=== PATIENT | male | born 1965 | race Caucasian/White ===

== ENCOUNTER 2018-12-21 06:26 | Day surgery (SDC) | payer BC, OTHER ==
[~2018-12-21 06:26] MED LIST: Midazolam 1 MG/ML 2 ML SDV ONE; fentaNYL 100 MCG/2 ML SDV ONE
[2018-12-21] MEDS ORDERED: fentaNYL 100 MCG/2 ML SDV IV ONE ×3 (06:27→07:11)
[2018-12-21] MEDS ORDERED: Midazolam 1 MG/ML 2 ML SDV IV ONE ×3 (06:27→07:13)
[2018-12-21] MEDS ORDERED: Sodium Chloride 0.9% 10 ML Syringe FLUSH PRN (07:00)
[2018-12-21] MEDS ORDERED: Dextrose 5%-0.45% NaCl 1,000 ML IV SCH (07:00)
[2018-12-21 10:43] VITALS: BP 120/84; PULSE 87
--- NOTE | 2018-12-21 11:37 | OR ---
DATE: 12/21/2018 PROCEDURE PERFORMED: Esophagogastroduodenoscopy and multiple pinch biopsies. INSTRUMENT USED: [id number]-HQ190 Olympus video panendoscope. PREMEDICATIONS: No oral or topical anesthesia used. Fentanyl 100 mcg intravenous, Versed 2 mg intravenous. The procedure was done under pulse oximetry, BP recording, and monitoring and evaluation advisor. INDICATION: The patient with persistent chest pain, unexplained and not responsive to medical measures, on high-dose PPI. INDICATIONS: The esophagogastroduodenoscopy is performed for detection of any active erosive lesions, malignancy also under consideration, H. pylori status to be determined, endoscopic hemostasis therapy if needed. DESCRIPTION OF PROCEDURE: The scope was passed with ease. Adequate visualization of the esophagus was made from proximal to distal areas. No upper esophageal lesions identified. No distal esophageal stricture. No uphill or downhill esophageal varices. No Shobha-Damon tear. No evidence of erosive esophagitis by Sherrill criteria. No esophageal polyp or tumor mass identified. Z-line was seen at around 40 cm distal to the oral verge, configuration consistent with grade 1 by ZAP classification. No esophageal polyp or tumor mass identified. No proximal gastric varices noted. Gastric fundus examination by retroflexion showed no polypoid lesions. No gastric ulcer, malignant mass, or vascular ectasia identified. Duodenal bulb showed no ulcer. Visualized second part of the duodenum was unremarkable. Multiple pinch biopsies were taken from the gastric antrum and proximal body and sent for PyloriTek test for H. pylori, and if negative in an hour, the tissue is to be sent for histopathology. No bleeding was noted from any of the visualized areas at the completion of examination. Photographs were taken of the duodenal bulb, gastric antrum, fundus, and distal esophagus. IMPRESSION: Normal study. The patient tolerated the procedure well. [facility] /[id number]
== END 2018-12-21 09:27 | disposition home or self-care (01) ==
LOC: DL.ENDO 06:26
PROVIDERS: ATTEND Internal Medicine Gastroenterology
DX: R07.9 Chest pain, unspecified (principal); K21.9 Gastro-esophageal reflux disease without esophagitis; E78.5 Hyperlipidemia, unspecified; E11.9 Type 2 diabetes mellitus without complications; I10 Essential (primary) hypertension; E66.09 Other obesity due to excess calories; Z68.34 Body mass index [BMI] 34.0-34.9, adult; Z79.899 Other long term (current) drug therapy
CPT/HCPCS: 43239; 87077; J2250; J3010; J7042

== ENCOUNTER 2023-03-13 05:59 | Day surgery (SDC) | payer BC, OTHER ==
[2023-03-13] MEDS ORDERED: Dextrose 5%-0.45% NaCl 1,000 ML IV SCH (06:00)
[2023-03-13] MEDS ORDERED: Midazolam 1 MG/ML 2 ML SDV IV ONE ×7 (06:00→07:03)
[2023-03-13] MEDS ORDERED: fentaNYL 100 MCG/2 ML SDV IV ONE ×3 (06:00→06:54)
[2023-03-13] MEDS ORDERED: Midazolam 1 MG/ML 2 ML SDV ONE (06:08)
[2023-03-13] MEDS ORDERED: fentaNYL 100 MCG/2 ML SDV ONE (06:08)
[2023-03-13 15:07] VITALS: BP 130/88; PULSE 65
== END 2023-03-13 08:30 | disposition home or self-care (01) ==
LOC: DL.ENDO 05:59
PROVIDERS: ATTEND Internal Medicine Gastroenterology
DX: Z12.11 Encounter for screening for malignant neoplasm of colon (principal); D12.4 Benign neoplasm of descending colon; K62.1 Rectal polyp; K57.30 Diverticulosis of large intestine without perforation or abscess without bleeding; I10 Essential (primary) hypertension; E78.5 Hyperlipidemia, unspecified; E11.9 Type 2 diabetes mellitus without complications; K75.81 Nonalcoholic steatohepatitis (NASH); K21.9 Gastro-esophageal reflux disease without esophagitis; K58.9 Irritable bowel syndrome, unspecified; E66.01 Morbid (severe) obesity due to excess calories
CPT/HCPCS: J2250; J3010; J7042

== ENCOUNTER 2024-06-28 07:07 | Day surgery (SDC) | payer BC, OTHER ==
[~2024-06-28 07:07] MED LIST changes: +Midazolam 1 MG/ML 2 ML SDV IV ONE; +fentaNYL 100 MCG/2 ML SDV IV ONE
[2024-06-28] MEDS: Dextrose 5%-0.45% NaCl 1,000 ML IV SCH (07:37)
[2024-06-28] MEDS: fentaNYL 100 MCG/2 ML SDV IV ONE ×2 (07:59→08:00)
[2024-06-28] MEDS: Midazolam 1 MG/ML 2 ML SDV IV ONE ×2 (08:00→08:01)
[2024-06-28 08:51] VITALS: PULSE 79
[2024-06-28 09:30] VITALS: BP 123/79
== END 2024-06-28 09:42 | disposition home or self-care (01) ==
LOC: DL.ENDO 07:07
PROVIDERS: ATTEND Internal Medicine Gastroenterology
DX: K29.50 Unspecified chronic gastritis without bleeding (principal); K21.9 Gastro-esophageal reflux disease without esophagitis; I10 Essential (primary) hypertension; E78.5 Hyperlipidemia, unspecified; E11.9 Type 2 diabetes mellitus without complications; G47.33 Obstructive sleep apnea (adult) (pediatric)
CPT/HCPCS: 43239; J2250; J3010; J7799